=== PATIENT | male | born 1995 | race Two or more races ===

== ENCOUNTER 2023-09-16 17:10 | Emergency (ER) | payer BC, MEDICAID ==
[~2023-09-16] VITALS: Ht 182.9 cm; Wt 181.0 kg
[2023-09-16] MEDS ORDERED: SODIUM CHLORIDE 0.9% 500 ML IVB ONE (18:00)
[2023-09-16 19:11] LABS: Basophils # (auto) 0 10 ^3/uL (0-0.2); Eosinophils # (auto) 0 10 ^3/uL (0-0.8); Monocytes # (auto) 0.7 10 ^3/uL (0-1.3); Nucleated Red Blood Cells % 0.1 %
[2023-09-16 19:12] LABS: Basophils % (auto) 0.2 % (0.0-2.0); Eosinophils % (auto) 0.3 % (0.0-7.0); Hematocrit 50.1 % (41.0-53.0); Hemoglobin 16.3 g/dL (13.5-17.5); Lymphocytes # (auto) 1.2 10 ^3/uL (0.4-5.4); Lymphocytes % (auto) 8.4 % (10.0-50.0); Mean Corpuscular Hemoglobin 26.6 pg (28.0-32.0); Mean Corpuscular Hgb Conc. 32.4 g/dL (32.0-36.0); Mean Corpuscular Volume 81.9 fL (80.0-100.0); Monocytes % (auto) 4.8 % (0.0-12.0); Neutrophils # (auto) 12.4 10 ^3/uL (1.6-8.6); Neutrophils % (auto) 86.3 % (37.0-80.0); Red Blood Cells 6.12 10^6/uL (4.5-5.90); Red Cell Distribution Width 14.1 % (11.8-14.3); White Blood Cell 14.4 10^3/uL (4.4-10.8)
[2023-09-16 19:34] LABS: Alanine Aminotransferase 71 U/L (7-40); Albumin 4.8 g/dL (3.2-4.8); Alkaline Phosphatase 49 U/L (46-116); Anion Gap 11 (5-15); Aspartate Aminotransferase 38 U/L (13-40); BUN/Creatinine Ratio 8.1 (10.0-20.0); Bilirubin, Total 0.3 mg/dL (0.2-1.0); Blood Alcohol < 3.0 mg/dL (<10); Blood Urea Nitrogen 8 mg/dL (9-23); Calcium 9.8 mg/dL (8.5-10.1); Carbon Dioxide 19 mmol/L (20-30); Chloride 108 mmol/L (98-107); Glucose 87 mg/dL (74-106); Potassium 4.4 mmol/L (3.5-5.1); Sodium 138 mmol/L (136-145); Total Protein 7.3 g/dL (5.7-8.2)
[2023-09-16 20:03] LABS: Magnesium 2.6 mg/dL (1.6-2.6)
[2023-09-16] MEDS ORDERED: HYDR-4902 PO (21:25)
[2023-09-16] MEDS ORDERED: ONDANSETRON HCL 4 MG/2 ML VIAL IV ONE (21:30)
[2023-09-16] MEDS ORDERED: MORPHINE SULFATE 4 MG/ML SYR/VIAL IV ONE (21:30)
[2023-09-16 21:32] VITALS: TEMP 98.7
[2023-09-16 22:50] VITALS: BP 135/74
[2023-09-16 23:03] VITALS: PULSE 72; RESP 16; O2SAT 98
== END 2023-09-16 23:06 | disposition home or self-care (01) ==
LOC: ER 17:10 → EDBD 17:10 → ER 23:06
DX: S82.092A Other fracture of left patella, initial encounter for closed fracture (principal); R56.9 Unspecified convulsions; F17.210 Nicotine dependence, cigarettes, uncomplicated; F15.90 Other stimulant use, unspecified, uncomplicated; Z79.899 Other long term (current) drug therapy; X58.XXXA Exposure to other specified factors, initial encounter; Y93.89 Activity, other specified; Y92.89 Other specified places as the place of occurrence of the external cause; Y99.8 Other external cause status
CPT/HCPCS: 29505; 36415; 70450; 73700; 80053; 80320; 83735; 85025; 96361; 96374; 96375; 99285; J2270; J2405; J7040

== ENCOUNTER 2024-12-18 22:52 | Inpatient (IN) | payer MEDICAID ==
[~2024-12-18] VITALS: Ht 177.8 cm; Wt 125.0 kg
[~2024-12-18 22:52] MED LIST: HYDR-4902 PO
--- NOTE | 2024-12-18 23:12 | ED.PDOC ---
General HPI Comments HPI: Poor Historian. 29-year-old male Presents to the ED for evaluation of sudden onset of left flank pain approximately 40 minutes prior to arrival. Associated with nausea. No vomiting or diarrhea. Past Medical History: Hypertension Past Surgical History: Denies any REVIEW OF SYSTEMS: CONSTITUTIONAL: Denies acute: fever, diaphoresis, chills, generalized weakness. HEAD: Denies acute: headache, photophobia Eyes: Denies acute: Double vision, vision loss, eye pain, eye discharge. EARS: Denies acute: tinnitus, hearing loss, ear discharge, ear pain, THROAT: Denies acute: sore throat, swelling, difficulty swallowing , pain with swallowing, change in voice. NECK: Denies acute: neck pain, neck swelling, stiff neck. HEART: Denies acute : chest pain, palpitations, LUNGS: Denies acute: SOB, wheezing, cough, hemoptysis ABDOMEN: Denies acute: abdominal pain, Nausea, Vomiting, diarrhea, melena , hematemesis, hematochezia SKIN: Denies acute: rash, redness, lesions, itchiness. EXTREMITIES: Denies acute: calf pain, numbness, tingling, weakness, denies pain in extremity. Denies acute: Low back pain. Neuro: Denies acute: focal neurological deficit, motor or sensory focal neurological deficit, tremors, seizure like activity, confusion, dizziness, change in mental status, loss of bowel or bladder function, cauda equina like symptoms. : Denies acute: dysuria, hematuria, increase in urinary frequency. PSYCH: Denies acute: hallucination, suicidal ideation, homicidal ideation. PHYSICAL EXAM: General: Moderate to severe acute distress, awake and alert. Head: normocephalic, atraumatic. Neck: supple, trachea is midline, no swelling. Throat: Normal phonation. Eyes:, no erythema, no purulent discharge, no proptosis, no icterus. Heart: regular rate, regular rhythm, no significant murmur appreciated. Lungs: no apparent respiratory distress, Able to speak in full sentences. No wheezing, no rhonchi, no crackles. No stridors Clear to auscultation bilaterally. Abdomen: Left upper quadrant tender to palpation, non distended, soft, no guarding, no rebound, + bowel sounds. Neuro: Awake, Alert, oriented to name, self, situation, follows commands GCS=15. Speech is normal. Skin: no petechia, no purpura, no cyanosis, non-pale, not jaundice. Lower extremities: --no - Pitting edema no deformity, no focal swelling, no calf TTP. Makes eye contact. moves all four extremities. Face: no apparent facial droop. L CVA tenderness to percussion Ambulating in the ED independently. ED COURSE: Chief Complaint: Flank Pain Time Seen by MD: 22:57 Primary Care Provider: NONE Reviewed notes: Nurses Notes, Allergies Allergies: Coded Allergies: NO KNOWN ALLERGIES (Unverified , 11/14/11) Home Meds Active Scripts Hydrocodone-Acetaminophen (Hydrocodone Bitartrate/AC 5-325 mg) 1 Tab Tab, 1 TAB PO Q8HP PRN for 7 Days, #21 TAB Prov:NA MERCER MD 09/16/23 Information Source: Patient Past Medical History PAST MEDICAL HISTORY: Denies Surgical History: Denies all surgeries Family History Family History: Family hx of DM, Family hx of HTN, Family hx of stroke Social History Smoker: Cigarettes Alcohol: Occasionally Drugs: Marijuana Lives In: Home Was a procedure done? Was a procedure done?: No Differential Diagnosis Kidney stone (Female): N/A Kidney stone (Male): AAA, Aortic dissection, Appendicitis train, Bowel obstruction, Cholelithiasis, DJD, Hepatitis, HNP, Cholangitis, Pancreatitis, Pyelonephritis, Renal failure, Strain, Urinary obstruction, Urolithiasis, Renal infarction, Urinary tract infection, Other (Flank Pain;DDX include Nephrolethiasis, obstructive uropathy, kidney cancer, renal infarct, intraabdominal neoplasm, lower lobe pneumonia, retroperitoneal hemorrhage, pancreatitis, aneurysm, dissection, musculoskeletal, rib contusion/trauma, hematoma, PYLONEPHRITIS, muscle strain, spinal disease.) X-Ray, Labs, Meds, VS Vital Signs Date Time Temp Pulse Resp B/P (MAP) Pulse Ox O2 Delivery O2 Flow Rate FiO2 12/18/24 23:58 100 Room Air* 0 21 12/18/24 23:54 104/78 12/18/24 23:48 73 28 104/78 (87) 100 12/18/24 23:10 97.9 75 19 152/54 (86) 99 Lab Test 12/19/24 00:35 12/18/24 23:12 12/18/24 23:04 Range/Units Lactic Acid Level 3.8 *H 4.8 *H 0.4-2.0 mmol/L Urine Color Pending Urine Clarity Pending Urine pH Pending Urine Specific [place] Pending Urine Protein Pending Urine Ketones Pending Urine Blood Pending Urine Nitrite Pending Urine Bilirubin Pending Urine Urobilinogen Pending Urine Leukocyte Esterase Pending Urine RBC Pending Urine Microscopic WBC Pending Urine Squamous Epithelial Cells Pending Urine Bacteria Pending Urine Glucose Pending Urine Opiates Screen Pending Urine Fentanyl Screen Pending Urine Barbiturates Screen Pending Urine Phencyclidine Screen Pending Urine Amphetamines Screen Pending Urine Benzodiazepines Screen Pending Urine Cocaine Screen Pending Urine Cannabinoids Screen Pending White Blood Count 8.5 4.4-10.8 10^3/uL Red Blood Count 5.40 4.5-5.90 10^6/uL Hemoglobin 14.7 13.5-17.5 g/dL Hematocrit 43.7 41.0-53.0 % Mean Corpuscular Volume 81.0 80.0-100.0 fL Mean Corpuscular Hemoglobin 27.1 L 28.0-32.0 pg Mean Corpuscular Hemoglobin Concent 33.5 32.0-36.0 g/dL Red Cell Distribution Width 13.6 11.8-14.3 % Platelet Count 354 140-450 10^3/uL Mean Platelet Volume 7.1 6.9-10.8 fL Neutrophils (%) (Auto) 49.9 37.0-80.0 % Lymphocytes (%) (Auto) 37.8 10.0-50.0 % Monocytes (%) (Auto) 9.5 0.0-12.0 % Eosinophils (%) (Auto) 1.9 0.0-7.0 % Basophils (%) (Auto) 0.9 0.0-2.0 % Neutrophils # (Auto) 4.2 1.6-8.6 10 ^3/uL Lymphocytes # (Auto) 3.2 0.4-5.4 10 ^3/uL Monocytes # (Auto) 0.8 0-1.3 10 ^3/uL Eosinophils # (Auto) 0.2 0-0.8 10 ^3/uL Basophils # (Auto) 0.1 0-0.2 10 ^3/uL Nucleated Red Blood Cells 0.1 % Sodium Level 139 136-145 mmol/L Potassium Level 3.3 L 3.5-5.1 mmol/L Chloride Level 104 98-107 mmol/L Carbon Dioxide Level 19 L 20-31 mmol/L Anion Gap 16 H 5-15 Blood Urea Nitrogen 13 9-23 mg/dL Creatinine 1.19 0.700-1.30 mg/dL Glomerular Filtration Rate Calc 84 >90 mL/min BUN/Creatinine Ratio 10.9 10.0-20.0 Serum Glucose 108 H 74-106 mg/dL Calcium Level 10.8 H 8.7-10.4 mg/dL Total Bilirubin 0.6 0.2-1.0 mg/dL Aspartate Amino Transferase (AST) 22 13-40 U/L Alanine Aminotransferase (ALT) 35 7-40 U/L Alkaline Phosphatase 49 46-116 U/L Total Protein 7.7 5.7-8.2 g/dL Albumin 5.1 H 3.2-4.8 g/dL Lipase 77 H 12-53 U/L Current Medications Medications (Trade) Dose Ordered Sig/Coleen Route Start Time Stop Time Status Last Admin Sodium Chloride 1,000 ml @ 1,000 mls/hr Q1H ONCE IV 12/18/24 23:15 12/19/24 00:14 DC 12/18/24 23:49 Ondansetron HCl (Zofran) 8 mg ONCE ONCE IV 12/18/24 23:15 12/18/24 23:16 DC 12/18/24 23:53 Fentanyl Citrate 100 mcg ONCE ONCE IV 12/18/24 23:15 12/18/24 23:16 DC 12/18/24 23:54 Acetaminophen/ Hydrocodone Bitart (Panora 5/325MG Tab) 1 tab ONCE ONCE PO 12/18/24 23:15 12/18/24 23:16 DC 12/18/24 23:19 Tamsulosin HCl (Flomax) 0.4 mg ONCE ONCE PO 12/18/24 23:15 12/18/24 23:16 DC 12/18/24 23:18 Sodium Chloride 1,000 ml @ 1,000 mls/hr Q1H ONCE IV 12/19/24 00:00 12/19/24 00:59 DC 12/19/24 00:31 Ketorolac Tromethamine (Toradol Injection) 30 mg ONCE ONCE IV 12/19/24 00:15 12/19/24 00:26 DC 12/19/24 00:38 Ondansetron HCl (Zofran) 4 mg ONCE ONCE IV 12/19/24 01:15 12/19/24 01:16 DC 12/19/24 01:17 Potassium Chloride (Klor-Con Tablet) 20 meq ONCE ONCE PO 12/19/24 01:45 12/19/24 01:47 DC 12/19/24 01:53 Sodium Chloride 1,000 ml @ 60 mls/hr [id number] IV 12/19/24 01:45 12/19/24 01:55 Fentanyl Citrate 100 mcg ONCE ONCE IV 12/19/24 01:45 12/19/24 01:47 DC 12/19/24 01:54 [place] [id number] Ph: [phone] DIAGNOSTIC IMAGING Diagnostic Imaging Report : [id number] Signed PATIENT: MARCO A HOWARD ACCT: [id number] UNIT: [id number] : 1995 LOC: ER ROOM / BED: / AGE / SEX: 29 / M ADM STATUS: REG ER SERVICE [id number] ORDERING PHYSICIAN: KARENA PARTIDA DO PROCEDURE(s): ABPL - CT AB PEL WO CON-NO ORAL OR IV REASON: abd pain ORDER NUMBER(s): [id number], ACCESSION NUMBER(s): [id number] CLINICAL HISTORY: abd pain TECHNIQUE: CT of the abdomen and pelvis was performed without intravenous contrast. This exam was performed according to our departmental dose optimization program. Up-to-date CT equipment and radiation dose reduction techniques are utilized as appropriate. COMPARISON: None FINDINGS: Lower Thorax: Unremarkable. Liver and Biliary system: Mild hepatomegaly. Otherwise unremarkable. Spleen: Unremarkable. Adrenal Glands and Kidneys: Normal adrenal glands. There is an obstructing 4 mm calculus in the distal left ureter resulting in mild left hydroureteronephrosis. Tiny nonobstructing right upper pole renal calculus. Pancreas and Retroperitoneum: Unremarkable. Aorta and Major Vessels: Aortoiliac vessels are normal in caliber. Trace calcified atherosclerotic plaque. Bowel, Mesentery and Peritoneal space: Normal caliber small and large bowel. Normal appendix. No free air or fluid collection. Pelvis: Unremarkable. Abdominal wall and Osseous Structures: Mild lower thoracic and lumbar spondylosis. No destructive osseous lesion. IMPRESSION: 1. Obstructing 4 mm calculus in the distal left ureter resulting in mild left hydroureteronephrosis. 2. Tiny nonobstructing right upper pole renal calculus. 3. Mild hepatomegaly. ATED BY: DANNIE KAM MD DICTATED DATE/TIME: 12/19/2441 SIGNED BY: DANNIE KAM MD SIGNED DATE/TIME: 12/19/2441 CC: Time of 1ST Reevaluation: : Reevaluation 1ST: Improved Patient Education/Counseling: Diagnosis, Treatment Family Education/Counseling: No Family Present Comments Patient presented with the above HPI.--flank pain----workup was initiated. patient was found with the above mentioned diagnosis. the following medications were ordered: please refer to order lists of meds and tests obtained by myself Dr. Partida. Patient ED course and VS have been stabilized. Patient has been reassessed in the ED and remained in a stable condition. Pertinent incidental findings were discussed with the patient and/or family. Patient/family voices understanding and is agreeable with plan. Patient has been observed in the ED adequate length of time to insure improvement/stability. Escalation of care considered: Consideration of escalation to observation or admission Patient was ADMITTED to the medicine team for further evaluation and treatment of their presentation. Patient will benefit from urology consult. Patient is still requiring IV pain medications for symptoms control. All the reports of any imaging studies that were ordered by myself were reviewed by myself. Departure 1 Departure Time of Disposition: :00 Impression: Primary Impression: Hydronephrosis with renal and ureteral calculous obstruction Disposition: ADMITTED INPATIENT Admit to: Tele Condition: Guarded Discharged With: Self Critical Care Note Critical Care Time?: Yes (35 min-critical care time only) KARENA PARTIDA DO Dec 18, 2024 23:11
[2024-12-18] MEDS: TAMSULOSIN HYDROCHLORIDE 0.4 MG CAP PO ONE (23:18)
[2024-12-18] MEDS: HYDROcodone-ACET 5/325MG TAB PO ONE (23:19)
[2024-12-18 23:23] LABS: Basophils # (auto) 0.1 10 ^3/uL (0-0.2); Basophils % (auto) 0.9 % (0.0-2.0); Eosinophils # (auto) 0.2 10 ^3/uL (0-0.8); Eosinophils % (auto) 1.9 % (0.0-7.0); Hematocrit 43.7 % (41.0-53.0); Hemoglobin 14.7 g/dL (13.5-17.5); Lymphocytes # (auto) 3.2 10 ^3/uL (0.4-5.4); Lymphocytes % (auto) 37.8 % (10.0-50.0); Mean Corpuscular Hemoglobin 27.1 pg (28.0-32.0); Mean Corpuscular Hgb Conc. 33.5 g/dL (32.0-36.0); Monocytes # (auto) 0.8 10 ^3/uL (0-1.3); Monocytes % (auto) 9.5 % (0.0-12.0); Neutrophils # (auto) 4.2 10 ^3/uL (1.6-8.6); Neutrophils % (auto) 49.9 % (37.0-80.0); Nucleated Red Blood Cells % 0.1 %; Platelet Count (auto) 354 10^3/uL (140-450); Red Cell Distribution Width 13.6 % (11.8-14.3); White Blood Cell 8.5 10^3/uL (4.4-10.8)
[2024-12-18 23:43] LABS: Alanine Aminotransferase 35 U/L (7-40); Alkaline Phosphatase 49 U/L (46-116); Anion Gap 16 (5-15); Aspartate Aminotransferase 22 U/L (13-40); BUN/Creatinine Ratio 10.9 (10.0-20.0); Bilirubin, Total 0.6 mg/dL (0.2-1.0); Blood Urea Nitrogen 13 mg/dL (9-23); Chloride 104 mmol/L (98-107); Sodium 139 mmol/L (136-145); Total Protein 7.7 g/dL (5.7-8.2)
[2024-12-18 23:44] LABS: Albumin 5.1 g/dL (3.2-4.8); Calcium 10.8 mg/dL (8.7-10.4); Carbon Dioxide 19 mmol/L (20-31); Glucose 108 mg/dL (74-106); Lipase 77 U/L (12-53); Potassium 3.3 mmol/L (3.5-5.1)
[2024-12-18] MEDS: SODIUM CHLORIDE 0.9% 1,000 ML IV ONE (23:49)
[2024-12-18 23:52] LABS: Lactic Acid w/Reflex 4.8 mmol/L (0.4-2.0)
[2024-12-18] MEDS: ONDANSETRON HCL 4 MG/2 ML VIAL IV ONE (23:53)
[2024-12-18] MEDS: fentaNYL CITRATE 100 MCG/2 ML VL IV ONE (23:54)
[2024-12-18 23:58] VITALS: O2SAT 100
[2024-12-19] MEDS: SODIUM CHLORIDE 0.9% 1,000 ML IV ONE (00:31)
[2024-12-19] MEDS: KETOROLAC TROMETH 30 MG/ML 1ML VIAL IV ONE (00:38)
--- NOTE | 2024-12-19 00:45 | DVH ---
CLINICAL HISTORY: abd pain TECHNIQUE: CT of the abdomen and pelvis was performed without intravenous contrast. This exam was per formed according to our departmental dose optimization program. Up-to-date CT equipment and radiation dose reduction techniques are utilized as appropriate. COMPARISON: None FINDINGS: Lower Thorax: Unremarkable. Liver and Biliary system: Mild hepatomegaly. Otherwise unremarkable. Spleen: Unremarkable. Adrenal Glands and Kidneys: Normal adrenal glands. There is an obstructing 4 mm calculus in the dista l left ureter resulting in mild left hydroureteronephrosis. Tiny nonobstructing right upper pole lux l calculus. Pancreas and Retroperitoneum: Unremarkable. Aorta and Major Vessels: Aortoiliac vessels are normal in caliber. Trace calcified atherosclerotic pl aque. Bowel, Mesentery and Peritoneal space: Normal caliber small and large bowel. Normal appendix. No free air or fluid collection. Pelvis: Unremarkable. Abdominal wall and Osseous Structures: Mild lower thoracic and lumbar spondylosis. No destructive oss eous lesion. IMPRESSION: 1. Obstructing 4 mm calculus in the distal left ureter resulting in mild left hydroureteronephrosis. 2. Tiny nonobstructing right upper pole renal calculus. 3. Mild hepatomegaly.
[2024-12-19] MEDS: ONDANSETRON HCL 4 MG/2 ML VIAL IV ONE (01:17)
[2024-12-19 01:29] LABS: Urine Bacteria None Seen /hpf (None Seen)
[2024-12-19] MEDS ORDERED: ACETAMINOPHEN 325 MG TAB PO PRN (01:45)
[2024-12-19] MEDS ORDERED: ONDANSETRON HCL 4 MG/2 ML VIAL IV PRN (01:45)
[2024-12-19] MEDS ORDERED: MORPHINE SULFATE INJ 2 MG/ml SYRG IV PRN ×2 (01:45→02:00)
[2024-12-19] MEDS: POTASSIUM CHL 20 Meq TABLET PO ONE (01:53)
--- NOTE | 2024-12-19 01:53 | DVHHP2 ---
History of Present Illness Reason for Visit: Hydronephrosis History of Present Illness Patient is a 29-year-old male with past medical history of hypertension who presented to [facility] ED with complaint of left flank pain associated with nausea. Patient was seen and evaluated in the ED, laboratory data show WBC 8.5, platelets 354, sodium 139, potassium 3.3, BUN 13, creatinine 1.19, GFR 84, glucose 108, lactic acid 3.8, albumin 5.1, lipase 77, calcium 10.8, blood pressure 104/78, heart rate 72, temperature 97.9 F, O2 saturation 99% on room air. Abdomen/pelvis CT revealing obstructing 4 mm calculus in the distal left ureter resulting in mild left hydroureteronephrosis, tiny nonob structing right upper pole renal calculus, mild hepatomegaly. Urology will follow the patient, please see medication orders section in the computer. On my assessment, patient denies chest pain, no headache, no dizziness, abdominal pain, no diarrhea, no nausea, no vomiting, no fever, no chills. Patient was admitted for further evaluation and medical management. Past Medical History Hypertension Past Surgical History Denies all surgeries Family History Reviewed, noncontributory to the management of this case. Past Social History The patient lives at home, smokes cigarettes, drinks alcohol occasionally, uses marijuana. Review of Systems Constitutional: Yes: Chills; No: Fever, Sweats, Weakness, Malaise, Other Eyes: No: Pain, Vision change, Conjunctivae inflammation, Eyelid inflammation, Other, Redness ENT: No: Ear pain, Ear discharge, Nose pain, Nose discharge, Nose congestion, Mouth pain, Mouth swelling, Throat pain, Throat swelling, Other Respiratory: No: Cough, Dry, Shortness of breath, SOB with excertion, Wheezing, Hemoptysis, Pleuritic Pain, Sputum, Wheezing, Other Cardiovascular: No: Chest Pain, Palpitations, Orthopnea, Paroxysmal Noc. Dyspnea, Edema, Lt Headedness, Other Gastrointestinal: Nausea, Abdominal Pain; No: Vomiting, Diarrhea, Constipation, Melena, Hematochezia, Other Genitourinary: No Dysuria, No Frequency, No Incontinence, No Hematuria, No Retention; Other (Left flank pain) Musculoskeletal: No: other, neck pain, shoulder pain, arm pain, back pain, hand pain, leg pain, foot pain Skin: No: Rash, Lesions, Jaundice, Bruising, Other Neurological: No: Weakness, Numbness, Incoordination, Change in speech, Confusion, Seizures, Other Allergies: Coded Allergies: NO KNOWN ALLERGIES (Unverified , 11/14/11) Medications Current Medications Medications Dose Ordered Sig/Coleen Route Start Time Stop Time Status Last Admin Dose Admin Sodium Chloride 1,000 ml @ 60 mls/hr [id number] IV 12/19/24 01:45 Acetaminophen/ Hydrocodone Bitart 1 tab Q4HP PRN PO 12/19/24 01:45 Ondansetron HCl 4 mg Q4HP PRN IV 12/19/24 01:45 Docusate Sodium 100 mg BIDPRN PRN PO 12/19/24 01:45 Acetaminophen 650 mg Q6HP PRN PO 12/19/24 01:45 Morphine Sulfate 2 mg Q4HPRN PRN IV 12/19/24 01:45 Metoclopramide HCl 10 mg Q6HPRN PRN IV 12/19/24 02:00 Exam Vital Signs Vital Signs Date Time Temp Pulse Resp B/P (MAP) Pulse Ox O2 Delivery O2 Flow Rate FiO2 12/18/24 23:58 100 Room Air* 0 21 12/18/24 23:54 104/78 12/18/24 23:48 73 28 12/18/24 23:10 97.9 General Appearance: Alert, Oriented X3, Cooperative, No acute distress HEENT: Atraumatic, PERRLA, EOMI, Mucous membr. moist/pink Respiratory: Clear to auscultation, Normal air movement Cardiovascular: Regular rate, Normal S1, Normal S2, No murmurs Abdominal: Normal bowel sounds, Soft, No tenderness, No hepatospenomegaly, No masses Extremities: No clubbing, No cyanosis, No edema, Normal pulses, No tenderness/swelling Skin: No rashes, No breakdown, No significant lesion Neuro: Normal speech, Normal tone, Sensation intact, Cranial nerves 3-12 NL, Reflexes 2+, Other (Generalized weakness) Psych/Mental Status: Mental status NL, Mood NL Labs/Xrays Labs Test 12/19/24 00:35 12/18/24 23:12 12/18/24 23:04 Range/Units Lactic Acid Level 3.8 *H 0.4-2.0 mmol/L White Blood Count 8.5 4.4-10.8 10^3/uL Red Blood Count 5.40 4.5-5.90 10^6/uL Hemoglobin 14.7 13.5-17.5 g/dL Hematocrit 43.7 41.0-53.0 % Mean Corpuscular Volume 81.0 80.0-100.0 fL Mean Corpuscular Hemoglobin 27.1 L 28.0-32.0 pg Mean Corpuscular Hemoglobin Concent 33.5 32.0-36.0 g/dL Red Cell Distribution Width 13.6 11.8-14.3 % Platelet Count 354 140-450 10^3/uL Mean Platelet Volume 7.1 6.9-10.8 fL Neutrophils (%) (Auto) 49.9 37.0-80.0 % Lymphocytes (%) (Auto) 37.8 10.0-50.0 % Monocytes (%) (Auto) 9.5 0.0-12.0 % Eosinophils (%) (Auto) 1.9 0.0-7.0 % Basophils (%) (Auto) 0.9 0.0-2.0 % Neutrophils # (Auto) 4.2 1.6-8.6 10 ^3/uL Lymphocytes # (Auto) 3.2 0.4-5.4 10 ^3/uL Monocytes # (Auto) 0.8 0-1.3 10 ^3/uL Eosinophils # (Auto) 0.2 0-0.8 10 ^3/uL Basophils # (Auto) 0.1 0-0.2 10 ^3/uL Nucleated Red Blood Cells 0.1 % Sodium Level 139 136-145 mmol/L Potassium Level 3.3 L 3.5-5.1 mmol/L Chloride Level 104 98-107 mmol/L Carbon Dioxide Level 19 L 20-31 mmol/L Anion Gap 16 H 5-15 Blood Urea Nitrogen 13 9-23 mg/dL Creatinine 1.19 0.700-1.30 mg/dL Glomerular Filtration Rate Calc 84 >90 mL/min BUN/Creatinine Ratio 10.9 10.0-20.0 Serum Glucose 108 H 74-106 mg/dL Calcium Level 10.8 H 8.7-10.4 mg/dL Total Bilirubin 0.6 0.2-1.0 mg/dL Aspartate Amino Transferase (AST) 22 13-40 U/L Alanine Aminotransferase (ALT) 35 7-40 U/L Alkaline Phosphatase 49 46-116 U/L Total Protein 7.7 5.7-8.2 g/dL Albumin 5.1 H 3.2-4.8 g/dL Lipase 77 H 12-53 U/L PATIENT: MARCO A HOWARD ACCT: [id number] UNIT: [id number] : 1995 LOC: ER ROOM / BED: / AGE / SEX: 29 / M ADM STATUS: REG ER SERVICE [id number] ORDERING PHYSICIAN: KARENA PARTIDA DO PROCEDURE(s): ABPL - CT AB PEL WO CON-NO ORAL OR IV REASON: abd pain ORDER NUMBER(s): [id number], ACCESSION NUMBER(s): [id number] CLINICAL HISTORY: abd pain TECHNIQUE: CT of the abdomen and pelvis was performed without intravenous contrast. This exam was performed according to our departmental dose optimization program. Up-to-date CT equipment and radiation dose reduction techniques are utilized as appropriate. COMPARISON: None FINDINGS: Lower Thorax: Unremarkable. Liver and Biliary system: Mild hepatomegaly. Otherwise unremarkable. Spleen: Unremarkable. Adrenal Glands and Kidneys: Normal adrenal glands. There is an obstructing 4 mm calculus in the distal left ureter resulting in mild left hydroureteronephrosis. Tiny nonobstructing right upper pole renal calculus. Pancreas and Retroperitoneum: Unremarkable. Aorta and Major Vessels: Aortoiliac vessels are normal in caliber. Trace ca lcified atherosclerotic plaque. Bowel, Mesentery and Peritoneal space: Normal caliber small and large bowel. Normal appendix. No free air or fluid collection. Pelvis: Unremarkable. Abdominal wall and Osseous Structures: Mild lower thoracic and lumbar spon dylosis. No destructive osseous lesion. IMPRESSION: 1. Obstructing 4 mm calculus in the distal left ureter resulting in mild left hydroureteronephrosis. 2. Tiny nonobstructing right upper pole renal calculus. 3. Mild hepatomegaly. Assessment/Plan Assessment/Plan Left flank pain Hypokalemia Generalized weakness Hydronephrosis with renal and ureteral calculous obstruction Plan 1. Admit to med surge unit 2. Breathing treatment 3. Pain control management 4. Management of fluids and electrolytes 5. Consultation for Urology/hospitalist 6. Diagnostic tests abdomen/pelvis CT 7. DVT prophylaxis-on SCDs 8. Repeat labs CBC, CMP in a.m. 9. Continue with current medical management 10. Treatment plan discussed with patient and RN. Patient verbalized understanding. Plan discussed with: Patient, Other (RN) My Orders Orders - MADONNA BLUE DNP Procedure Category Date Status Time Complete Blood Count LAB 12/19/24 Logged 04:00 Comprehensive LAB 12/19/24 Logged Metabolic Panel 04:00 * Urology Consult CONS 12/19/24 Transmitted 01:35 Allergies BARB 12/19/24 In Process 01:35 Code Status CODE 12/19/24 Transmitted 01:35 Sodium Chloride 0.9% PHA 12/19/24 In Process 01:45 Oxygen Per Hour RT 12/19/24 Transmitted 01:35 Hydrocodone-Acet PHA 12/19/24 In Process 5/325mg Tab ([place] 01:45 Ondansetron Hcl PHA 12/19/24 In Process (Zofran) 01:45 Docusate Sodium PHA 12/19/24 In Process Capsule (Colace 01:45 Complete Blood Count LAB 12/20/24 Verified 04:00 Comprehensive LAB 12/20/24 Verified Metabolic Panel 04:00 Cardiac DIET 12/19/24 Transmitted Diet-2gna,Lofat,Lochol Breakfast Condition: Serious BARB 12/19/24 In Process 01:35 Acetaminophen Tablet PHA 12/19/24 In Process (Tylenol Tablet) 01:45 Bedrest With Bathroom BARB 12/19/24 In Process Privileg 01:35 Morphine Sulfate PHA 12/19/24 In Process Injection 01:45 Sequential BARB 12/19/24 In Process Compression Device Metoclopramide PHA 12/19/24 In Process Injection (Reglan 02:00 Admit ADMIT 12/19/24 Transmitted 01:52 Nitroglycerin PHA 12/19/24 Transmitted Sublingual (Ntrostat 02:00 Morphine Sulfate PHA 12/19/24 Transmitted Injection 02:00 Stat Ekg For Chest BARB 12/19/24 Transmitted Pain 01:52 Notify Of Changes BARB 12/19/24 Transmitted From Base 01:52 Vp Director Of Creative Strategy For BARB 12/19/24 Transmitted 24 Hours 01:52 Emergency Dysrhythmia BARB 12/19/24 Transmitted Protocol 01:52 Rhythm Strips Once BARB 12/19/24 Transmitted Every Shift 01:52 Oxygen By Nasal RT 12/19/24 Transmitted Cannula 01:52 Problem List: (1) Left flank pain (2) Generalized weakness (3) Hypokalemia (4) Hydronephrosis with renal and ureteral calculous obstruction Date of Service: Dec 19, 2024 Billing Provider: MADONNA BLUE DNP Common Visit Codes: [id number] INP/OBS CARE (HIGH) MADONNA BLUE DNP Dec 19, 2024 01:53
[2024-12-19] MEDS: METOCLOPRAMIDE HCL 5MG/ml INJ 2ml VIAL IV ONE (01:54)
[2024-12-19] MEDS: fentaNYL CITRATE 100 MCG/2 ML VL IV ONE (01:54)
[2024-12-19] MEDS: SODIUM CHLORIDE 0.9% 1,000 ML IV SCH (01:55)
[2024-12-19] MEDS ORDERED: METOCLOPRAMIDE HCL 5MG/ml INJ 2ml VIAL IV PRN (02:00)
[2024-12-19] MEDS ORDERED: NITROGLYCERIN 0.4 MG SL TAB SL PRN (02:00)
[2024-12-19 02:03] LABS: Cannabinoid Screen, Urine Pos (NEGATIVE)
[2024-12-19 02:05] LABS: Urine Blood 2+ /uL (Negative); Urine Clarity Clear (Clear); Urine Color Yellow (Yellow); Urine Mucus FEW (None Seen); Urine Protein, UAD 1+ (Negative); Urine Specific Gravity 1.042 (1.001-1.035); Urine Squamous Epithelial Cell FEW /hpf (<5); Urine Urobilinogen 2 mg/dL (Negative); Urine WBC 4 /HPF (0-3); Urine pH 6.5 (5.0-9.0)
[2024-12-19 02:06] LABS: Amphetamine Screen, Urine Neg (NEGATIVE); Barbiturate Scree,Urine Neg (NEGATIVE); Benzodiazephine Screen, Urine Neg (NEGATIVE); Cocaine Screen, Urine Neg (NEGATIVE); Opiate Scree,Urine Neg (NEGATIVE); Phencyclidine Screen, Urine Neg (NEGATIVE)
[2024-12-19] MEDS: cefTRIAXone 1GM/50ML D5W 50 ML IV ONE (02:47)
[2024-12-19] MEDS: HYDROcodone-ACET 5/325MG TAB PO PRN (04:46)
[2024-12-19] MEDS: DOCUSATE SOD 100 MG CAP PO PRN (05:56)
[2024-12-19 07:17] LABS: Basophils # (auto) 0 10 ^3/uL (0-0.2); Basophils % (auto) 0.2 % (0.0-2.0); Eosinophils # (auto) 0 10 ^3/uL (0-0.8); Hematocrit 42.7 % (41.0-53.0); Hemoglobin 14.1 g/dL (13.5-17.5); Lymphocytes # (auto) 0.6 10 ^3/uL (0.4-5.4); Lymphocytes % (auto) 7.3 % (10.0-50.0); Mean Corpuscular Hemoglobin 26.6 pg (28.0-32.0); Mean Corpuscular Volume 80.5 fL (80.0-100.0); Monocytes # (auto) 0.4 10 ^3/uL (0-1.3); Monocytes % (auto) 4.7 % (0.0-12.0); Neutrophils # (auto) 7.3 10 ^3/uL (1.6-8.6); Neutrophils % (auto) 87.8 % (37.0-80.0); Nucleated Red Blood Cells % 0.1 %; Platelet Count (auto) 299 10^3/uL (140-450); Red Cell Distribution Width 13.7 % (11.8-14.3); White Blood Cell 8.3 10^3/uL (4.4-10.8)
[2024-12-19 07:40] LABS: Anion Gap 13 (5-15); Aspartate Aminotransferase 35 U/L (13-40); BUN/Creatinine Ratio 8.3 (10.0-20.0); Blood Urea Nitrogen 12 mg/dL (9-23); Calcium 9.7 mg/dL (8.7-10.4); Potassium 4.4 mmol/L (3.5-5.1); Sodium 139 mmol/L (136-145)
[2024-12-19 07:41] LABS: Albumin 4.7 g/dL (3.2-4.8); Bilirubin, Total 0.7 mg/dL (0.2-1.0)
[2024-12-19 07:43] LABS: Alanine Aminotransferase 53 U/L (7-40); Alkaline Phosphatase 43 U/L (46-116); Carbon Dioxide 17 mmol/L (20-31); Chloride 109 mmol/L (98-107); Glucose 126 mg/dL (74-106)
[2024-12-19 07:45] VITALS: TEMP 98.8
[2024-12-19 08:26] VITALS: PULSE 47; RESP 23; O2SAT 99
--- NOTE | 2024-12-19 10:17 | DVHPN2 ---
Subjective Decreasing left flank pain Reviewed: Care Plan, H&P, Labs, Medications, Previous Orders, Radiology, Other (Consultations) Changes from previous H/P or p: Changes Objective Vitals Vital Signs Date Time Temp Pulse Resp B/P (MAP) Pulse Ox O2 Delivery O2 Flow Rate FiO2 12/19/24 08:26 47 23 99 Nasal Cannula* 2 28 12/19/24 08:00 124/88 (100) 12/19/24 07:45 98.8 98.8 Intake/Output Intake and Output 12/19/24 07:00 Intake Total 2350 ml Output Total 200 ml Balance 2150 ml Intake IV Total 2350 ml Output Emesis 200 ml General Appearance: Alert, Oriented X3, Cooperative, No acute distress HEENT: Atraumatic Lungs: Clear to auscultation, Normal air movement Cardiovascular: Regular rate, Normal S1, Normal S2 Abdomen: Normal bowel sounds, Soft, Other (Mild left CVA tenderness) Neuro: Normal speech, Cranial nerves 3-12 NL Psych/Mental Status: Mental status NL, Mood NL Medications Current Medications Medications Dose Ordered Sig/Coleen Route Start Time Stop Time Status Last Admin Dose Admin Sodium Chloride 1,000 ml @ 60 mls/hr [id number] IV 12/19/24 01:45 12/19/24 01:55 60 MLS/HR Acetaminophen/ Hydrocodone Bitart 1 tab Q4HP PRN PO 12/19/24 01:45 12/19/24 04:46 1 TAB Ondansetron HCl 4 mg Q4HP PRN IV 12/19/24 01:45 Docusate Sodium 100 mg BIDPRN PRN PO 12/19/24 01:45 12/19/24 05:56 100 MG Acetaminophen 650 mg Q6HP PRN PO 12/19/24 01:45 Morphine Sulfate 2 mg Q4HPRN PRN IV 12/19/24 01:45 Metoclopramide HCl 10 mg Q6HPRN PRN IV 12/19/24 02:00 Nitroglycerin 0.4 mg Q5MINP PRN SL 12/19/24 02:00 Morphine Sulfate 2 mg Q30M PRN IV 12/19/24 02:00 Laboratory Results Laboratory Tests 12/19/24 06:34 Chemistry Test 12/18/24 23:04 12/19/24 06:34 Albumin 5.1 g/dL (3.2-4.8) H 4.7 g/dL (3.2-4.8) Calcium Level 10.8 mg/dL (8.7-10.4) H 9.7 mg/dL (8.7-10.4) Total Protein 7.7 g/dL (5.7-8.2) 7.0 g/dL (5.7-8.2) Lipid panel Test 12/18/24 23:04 Lipase 77 U/L (12-53) H LFT Test 12/18/24 23:04 12/19/24 06:34 Alanine Aminotransferase (ALT) 35 U/L (7-40) 53 U/L (7-40) H Alkaline Phosphatase 49 U/L (46-116) 43 U/L (46-116) L Aspartate Amino Transferase (AST) 22 U/L (13-40) 35 U/L (13-40) Total Bilirubin 0.6 mg/dL (0.2-1.0) 0.7 mg/dL (0.2-1.0) Urinalysis Test 12/18/24 23:12 Urine Color Yellow (Yellow) Urine Clarity Clear (Clear) Urine pH 6.5 (5.0-9.0) Urine Specific [place] 1.042 (1.001-1.035) Urine Protein 1+ (Negative) H Urine Ketones 1+ (Negative) H Urine Blood 2+ /uL (Negative) H Urine Nitrite Negative (Negative) Urine Bilirubin Negative (Negative) Urine Urobilinogen 2 mg/dL (Negative) H Urine Leukocyte Esterase Negative /uL (Negative) Urine RBC 4 /hpf (0 - 3) Urine Microscopic WBC 4 /HPF (0-3) H Urine Squamous Epithelial Cells Few /hpf (<5) Urine Calcium Oxalate Crystals Few (None Seen) Urine Bacteria None seen /hpf (None Seen) Urine Mucus Few (None Seen) Urine Glucose Normal mg/dL (Normal) Labs and/or images reviewed: Labs reviewed by me, Image(s) reviewed by me Assessment/Plan Assessment/Plan A 29-year-old male patient with multiple comorbidities; who presented to emergency department with left flank pain. #Left flank pain due to obstructing 4 mm calculus in the distal left ureter resulting in mild left hydroureteronephrosis; continue IV antibiotics; continue pain management as indicated; evaluated by Urology; left AMA #Asymptomatic bradycardia; evaluated by Cardiology; left AMA #Tiny nonobstructing right upper pole renal calculus; evaluated by Urology; left AMA #Mild hepatomegaly; needs to follow up as outpatient; left AMA #Marijuana use cessation; counseled on marijuana use cessation for 17 minutes; left AMA #Essential hypertension; continue home antihypertensive medications; left AMA Goals of care discussed for 20 minutes; full code Late Entry. This medical document was created using an electronic medical record system with computerized dictation system. Although this document has been carefully reviewed, there might still be some phonetic and typographical errors. These areas are purely typographical due to imperfections of the software programs, and do not reflect any compromise in the patient's medical care. Plan discussed with: Patient, Other (Nurse) Date of Service: Dec 19, 2024 Billing Provider: LORENZO FALLON MD Common Visit Codes: 29264-[id number] INP/OBS CARE(HIGH) Secondary Visit Codes: 73508-SGPIG CHNG SMOKING >10MIN (Counseled on marijuana use cessation for 17 minutes), 23029-[id number] CARE PLAN 30 MINUTES (20 minutes) LORENZO FALLON MD Dec 19, 2024 10:17
--- NOTE | 2024-12-19 14:38 | DVHINCON2 ---
Date of service: Dec 19, 2024 Referring Physician hospitalist Reason for Consultation ureteral stone History of Present Illness History Source: Patient, Family, MD Notes Exam Limitations: No limitations HPI 29 yo male with left flank pain and found to have distal stone approx 4 mm with mild hydronephrosis. Seen in ER holding area. Currently pain free. Home Meds Active Scripts Hydrocodone-Acetaminophen (Hydrocodone Bitartrate/AC 5-325 mg) 1 Tab Tab, 1 TAB PO Q8HP PRN for 7 Days, #21 TAB Prov:NA MERCER MD 09/16/23 Past Medical History Cardiac: HTN Smoker: No Hx (Negative) Alocohol: None Drugs: None Domestic Violence: Neg Review of Systems Constitutional: No symptom reported Ears, Nose, & Throat: No symptom reported Eyes: No symptom reported Pulmonary/Respiratory: No symptom reported Cardiovascular: No symptom reported Gastrointestinal: No symptom reported Genitourinary: No symptom reported Musculoskeletal: No symptom reported Skin: No symptom reported Psychiatric: No symptom reported Endocrine: No symptom reported Hemotologic/Lymphatic: No symptom reported H&P Exam Vital Signs Vital Signs Date Time Temp Pulse Resp B/P (MAP) Pulse Ox O2 Delivery O2 Flow Rate FiO2 12/19/24 14:01 44 16 116/54 (74) 98 12/19/24 08:26 Nasal Cannula* 2 28 12/19/24 07:45 98.8 98.8 General Appeara: Well developed, Well nourished, Normal Appearance, Obese Pulmonary/Respiratory: Normal inspection, Normal breath sounds, Chest non- tender, Lungs clear Cardiovascular/Chest: Bradycardia Back Exam: Normal inspection Neuro/Mental St: Alert, Oriented Appearance: Appropriate appearance, Appropriate insight Eye contact/ Speech: Cooperative, Good eye contact, Normal speech Coordination/Gait: Normal finger->nose, Normal gait, Negative Romberg's sign Skin Exam: Normal inspection, Normal color, Warm/dry Labs/Xrays [address] [address] Ph: [phone] DIAGNOSTIC IMAGING Diagnostic Imaging Report : [id number] Signed PATIENT: MARCO A HOWARD ACCT: [id number] UNIT: [id number] : 1995 LOC: ER ROOM / BED: / AGE / SEX: 29 / M ADM STATUS: REG ER SERVICE DT: [id number] ORDERING PHYSICIAN: KARENA PARTIDA DO PROCEDURE(s): ABPL - CT AB PEL WO CON-NO ORAL OR IV REASON: abd pain ORDER NUMBER(s): [id number], ACCESSION NUMBER(s): [id number] CLINICAL HISTORY: abd pain TECHNIQUE: CT of the abdomen and pelvis was performed without intravenous contrast. This exam was performed according to our departmental dose optimization program. Up-to-date CT equipment and radiation dose reduction techniques are utilized as appropriate. COMPARISON: None FINDINGS: Lower Thorax: Unremarkable. Liver and Biliary system: Mild hepatomegaly. Otherwise unremarkable. Spleen: Unremarkable. Adrenal Glands and Kidneys: Normal adrenal glands. There is an obstructing 4 mm calculus in the distal left ureter resulting in mild left hydroureteronephrosis. Tiny nonobstructing right upper pole renal calculus. Pancreas and Retroperitoneum: Unremarkable. Aorta and Major Vessels: Aortoiliac vessels are normal in caliber. Trace calcified atherosclerotic plaque. Bowel, Mesentery and Peritoneal space: Normal caliber small and large bowel. Normal appendix. No free air or fluid collection. Pelvis: Unremarkable. Abdominal wall and Osseous Structures: Mild lower thoracic and lumbar spondylosis. No destructive osseous lesion. IMPRESSION: 1. Obstructing 4 mm calculus in the distal left ureter resulting in mild left hydroureteronephrosis. 2. Tiny nonobstructing right upper pole renal calculus. 3. Mild hepatomegaly. ATED BY: DANNIE KAM MD DICTATED DATE/TIME: 12/19/2441 SIGNED BY: DANNIE KAM MD SIGNED DATE/TIME: 12/19/2441 CC: Labs Test 12/19/24 06:34 12/19/24 00:35 12/18/24 23:12 12/18/24 23:04 Range/Units White Blood Count 8.3 4.4-10.8 10^3/uL Red Blood Count 5.30 4.5-5.90 10^6/uL Hemoglobin 14.1 13.5-17.5 g/dL Hematocrit 42.7 41.0-53.0 % Mean Corpuscular Volume 80.5 80.0-100.0 fL Mean Corpuscular Hemoglobin 26.6 L 28.0-32.0 pg Mean Corpuscular Hemoglobin Concent 33.0 32.0-36.0 g/dL Red Cell Distribution Width 13.7 11.8-14.3 % Platelet Count 299 140-450 10^3/uL Mean Platelet Volume 7.2 6.9-10.8 fL Neutrophils (%) (Auto) 87.8 H 37.0-80.0 % Lymphocytes (%) (Auto) 7.3 L 10.0-50.0 % Monocytes (%) (Auto) 4.7 0.0-12.0 % Eosinophils (%) (Auto) 0.0 0.0-7.0 % Basophils (%) (Auto) 0.2 0.0-2.0 % Neutrophils # (Auto) 7.3 1.6-8.6 10 ^3/uL Lymphocytes # (Auto) 0.6 0.4-5.4 10 ^3/uL Monocytes # (Auto) 0.4 0-1.3 10 ^3/uL Eosinophils # (Auto) 0 0-0.8 10 ^3/uL Basophils # (Auto) 0 0-0.2 10 ^3/uL Nucleated Red Blood Cells 0.1 % Sodium Level 139 136-145 mmol/L Potassium Level 4.4 3.5-5.1 mmol/L Chloride Level 109 H 98-107 mmol/L Carbon Dioxide Level 17 L 20-31 mmol/L Anion Gap 13 5-15 Blood Urea Nitrogen 12 9-23 mg/dL Creatinine 1.45 H 0.700-1.30 mg/dL Glomerular Filtration Rate Calc 66 >90 mL/min BUN/Creatinine Ratio 8.3 L 10.0-20.0 Serum Glucose 126 H 74-106 mg/dL Calcium Level 9.7 8.7-10.4 mg/dL Total Bilirubin 0.7 0.2-1.0 mg/dL Aspartate Amino Transferase (AST) 35 13-40 U/L Alanine Aminotransferase (ALT) 53 H 7-40 U/L Alkaline Phosphatase 43 L 46-116 U/L Lactate Dehydrogenase 279 H 120-246 U/L Total Protein 7.0 5.7-8.2 g/dL Albumin 4.7 3.2-4.8 g/dL Lactic Acid Level 3.8 *H 0.4-2.0 mmol/L Urine Color Yellow Yellow Urine Clarity Clear Clear Urine pH 6.5 5.0-9.0 Urine Specific [place] 1.042 H 1.001-1.035 Urine Protein 1+ H Negative Urine Ketones 1+ H Negative Urine Blood 2+ H Negative /uL Urine Nitrite Negative Negative Urine Bilirubin Negative Negative Urine Urobilinogen 2 H Negative mg/dL Urine Leukocyte Esterase Negative Negative /uL Urine RBC 4 0 - 3 /hpf Urine Microscopic WBC 4 H 0-3 /HPF Urine Squamous Epithelial Cells Few <5 /hpf Urine Calcium Oxalate Crystals Few None Seen Urine Bacteria None seen None Seen /hpf Urine Mucus Few None Seen Urine Glucose Normal Normal mg/dL Urine Opiates Screen Neg NEGATIVE Urine Fentanyl Screen Neg NEGATIVE Urine Barbiturates Screen Neg NEGATIVE Urine Phencyclidine Screen Neg NEGATIVE Urine Amphetamines Screen Neg NEGATIVE Urine Benzodiazepines Screen Neg NEGATIVE Urine Cocaine Screen Neg NEGATIVE Urine Cannabinoids Screen Pos NEGATIVE Lipase 77 H 12-53 U/L Assessment/Plan Problem List: (1) Hydronephrosis with renal and ureteral calculous obstruction Plan expulsive measures supportive care strain urine cleared from urology standpoint Plan discussed with: Patient, Other CHRISTINA MALDONADO NP Dec 19, 2024 14:38
--- NOTE | 2024-12-19 15:53 | DVHINCON2 ---
Date Seen: Dec 19, 2024 Referring Physician MD [place] Reason for Consultation Bradycardia History of Present Illness This is a pleasant 29-year-old man who presented to the emergency room with a chief complaint of left flank pain. During admission, the patient was noted to be bradycardic with a heart rate as low as 39 bpm. He underwent a 12 lead electrocardiogram revealing a sinus bradycardia rhythm with a heart rate at 47 bpm. case monitor reviewed without evidence of atrioventricular blocks or sinus pauses. The patient denies any dizziness, blurry vision, active GRACIA, chest discomfort, SOB, or syncopal events. Past medical history includes hypertension on amlodipine therapy, a one time event of seizure, migraine headaches, tobacco use, and obesity. Past Medical History Past medical history reviewed. No other significant than mentioned above. Past Surgical History Denies any past surgical history. Family History Family history reviewed. Not significant for CV disease. Social History Admits to tobacco use. Denies the use of alcohol or illicit drugs. Allergies: Coded Allergies: NO KNOWN ALLERGIES (Unverified , 11/14/11) Home Meds Active Scripts Hydrocodone-Acetaminophen (Hydrocodone Bitartrate/AC 5-325 mg) 1 Tab Tab, 1 TAB PO Q8HP PRN for 7 Days, #21 TAB Prov:NA MERCER MD 09/16/23 Home Meds Home medications reviewed. Current Medications Current Medications Medications (Trade) Dose Ordered Sig/Coleen Route PRN Reason Start Time Stop Time Status Last Admin Sodium Chloride 1,000 ml @ 60 mls/hr [id number] IV 12/19/24 01:45 12/19/24 01:55 Acetaminophen/ Hydrocodone Bitart ([place] 5/325MG Tab) 1 tab Q4HP PRN PO MODERATE PAIN (4-6 PAIN SCALE) 12/19/24 01:45 12/19/24 04:46 Ondansetron HCl (Zofran) 4 mg Q4HP PRN IV NAUSEA / VOMITING 12/19/24 01:45 Docusate Sodium (Colace Capsule) 100 mg BIDPRN PRN PO FOR CONSTIPATION 12/19/24 01:45 12/19/24 05:56 Acetaminophen (Tylenol Tablet) 650 mg Q6HP PRN PO PAIN SCALE 1-3 OR TEMP>100.4 12/19/24 01:45 Morphine Sulfate 2 mg Q4HPRN PRN IV SEVERE PAIN (7-10 PAIN SCALE) 12/19/24 01:45 Metoclopramide HCl (Reglan Injection) 10 mg Q6HPRN PRN IV NAUSEA / VOMITING 12/19/24 02:00 Nitroglycerin (Ntrostat Sublingual) 0.4 mg Q5MINP PRN SL FOR CHEST PAIN 12/19/24 02:00 Morphine Sulfate 2 mg Q30M PRN IV FOR CHEST PAIN 12/19/24 02:00 Review of Systems Constitutional: No symptom reported Ears, Nose, & Throat: No symptom reported Eyes: No symptom reported Neurological: No symptoms reported Pulmonary/Respiratory: No symptom reported Cardiovascular: No symptom reported Gastrointestinal: Left flank pain Genitourinary: No symptom reported Musculoskeletal: No symptom reported Skin: No symptom reported Psychiatric: No symptom reported Endocrine: No symptom reported Hemotologic/Lymphatic: No symptom reported Vital Signs Vital Signs Date Time Temp Pulse Resp B/P (MAP) Pulse Ox O2 Delivery O2 Flow Rate FiO2 12/19/24 14:01 44 16 116/54 (74) 98 12/19/24 08:26 Nasal Cannula* 2 28 12/19/24 07:45 98.8 98.8 Physical Exam General Appearance: Cooperative. Well developed. Morbidly obese. In no acute distress Head Exam: Normal inspection Neck Exam: Normal inspection. Non-tender. Normal alignment Pulmonary/Respiratory: Chest non-tender. Clear bilateral breath sounds Cardiovascular/Chest: Regular rate and rhythm. S1, S2. Sinus rhythm. No murmurs. No JVD. Peripheral Pulses: 2+ Radial (R). 2+ Radial (L). 2+ Pedal (R). 2+ Pedal (L) Abdominal Exam: Normal bowel sounds. Soft. Nontender. No hepatospenomegaly. No masses Ankle Exam: Negative ankle edema Lower extremities: Negative lower extremity edema Neuro/Mental Status: A&O x4. Coherent Thoughts/Psych: Normal thought pattern. Appropriate mood and affect. Good judgement and insight Appearance: In no acute distress Skin Exam: Normal inspection. Normal color. Warm. Dry Labs/Diagnostic Data Labs Test 12/19/24 06:34 12/19/24 00:35 12/18/24 23:12 12/18/24 23:04 Range/Units White Blood Count 8.3 4.4-10.8 10^3/uL Red Blood Count 5.30 4.5-5.90 10^6/uL Hemoglobin 14.1 13.5-17.5 g/dL Hematocrit 42.7 41.0-53.0 % Mean Corpuscular Volume 80.5 80.0-100.0 fL Mean Corpuscular Hemoglobin 26.6 L 28.0-32.0 pg Mean Corpuscular Hemoglobin Concent 33.0 32.0-36.0 g/dL Red Cell Distribution Width 13.7 11.8-14.3 % Platelet Count 299 140-450 10^3/uL Mean Platelet Volume 7.2 6.9-10.8 fL Neutrophils (%) (Auto) 87.8 H 37.0-80.0 % Lymphocytes (%) (Auto) 7.3 L 10.0-50.0 % Monocytes (%) (Auto) 4.7 0.0-12.0 % Eosinophils (%) (Auto) 0.0 0.0-7.0 % Basophils (%) (Auto) 0.2 0.0-2.0 % Neutrophils # (Auto) 7.3 1.6-8.6 10 ^3/uL Lymphocytes # (Auto) 0.6 0.4-5.4 10 ^3/uL Monocytes # (Auto) 0.4 0-1.3 10 ^3/uL Eosinophils # (Auto) 0 0-0.8 10 ^3/uL Basophils # (Auto) 0 0-0.2 10 ^3/uL Nucleated Red Blood Cells 0.1 % Sodium Level 139 136-145 mmol/L Potassium Level 4.4 3.5-5.1 mmol/L Chloride Level 109 H 98-107 mmol/L Carbon Dioxide Level 17 L 20-31 mmol/L Anion Gap 13 5-15 Blood Urea Nitrogen 12 9-23 mg/dL Creatinine 1.45 H 0.700-1.30 mg/dL Glomerular Filtration Rate Calc 66 >90 mL/min BUN/Creatinine Ratio 8.3 L 10.0-20.0 Serum Glucose 126 H 74-106 mg/dL Calcium Level 9.7 8.7-10.4 mg/dL Total Bilirubin 0.7 0.2-1.0 mg/dL Aspartate Amino Transferase (AST) 35 13-40 U/L Alanine Aminotransferase (ALT) 53 H 7-40 U/L Alkaline Phosphatase 43 L 46-116 U/L Lactate Dehydrogenase 279 H 120-246 U/L Total Protein 7.0 5.7-8.2 g/dL Albumin 4.7 3.2-4.8 g/dL Lactic Acid Level 3.8 *H 0.4-2.0 mmol/L Urine Color Yellow Yellow Urine Clarity Clear Clear Urine pH 6.5 5.0-9.0 Urine Specific [place] 1.042 H 1.001-1.035 Urine Protein 1+ H Negative Urine Ketones 1+ H Negative Urine Blood 2+ H Negative /uL Urine Nitrite Negative Negative Urine Bilirubin Negative Negative Urine Urobilinogen 2 H Negative mg/dL Urine Leukocyte Esterase Negative Negative /uL Urine RBC 4 0 - 3 /hpf Urine Microscopic WBC 4 H 0-3 /HPF Urine Squamous Epithelial Cells Few <5 /hpf Urine Calcium Oxalate Crystals Few None Seen Urine Bacteria None seen None Seen /hpf Urine Mucus Few None Seen Urine Glucose Normal Normal mg/dL Urine Opiates Screen Neg NEGATIVE Urine Fentanyl Screen Neg NEGATIVE Urine Barbiturates Screen Neg NEGATIVE Urine Phencyclidine Screen Neg NEGATIVE Urine Amphetamines Screen Neg NEGATIVE Urine Benzodiazepines Screen Neg NEGATIVE Urine Cocaine Screen Neg NEGATIVE Urine Cannabinoids Screen Pos NEGATIVE Lipase 77 H 12-53 U/L Assessment Asymptomatic bradycardia Left nephrolithiasis Acute kidney injury Tobacco use Morbid obesity Plan/Recommendation (Dr. Schreiber) The patient presents with asymptomatic bradycardia and no evidence of atrioventricular blocks or sinus pauses. Recommend treatment of hypertension with amlodipine and to avoid AV brinda blocking agents. Replete electrolytes as necessary. Consider an outpatient event monitor if deemed necessary. There is no further cardiac workup indicated at this time. Kindly call if in need to re- consult. Thank you for allowing us to participate in this patient's care. This medical document was created using an electronic medical record system with voice recognition software and computerized dictation system. Although this document has been carefully reviewed, there might still be some phonetic and typographical errors. Occasional wrong-word or ``sound-alike substitutions may have occurred due to the inherent limitations of voice recognition software. These areas are purely typographical due to imperfections of the software programs and do not reflect any compromise in the patient's medical care. Please read the chart carefully and recognize, using context, where these substitutions have occurred. Plan discussed with: Patient, Spouse, Other NYHA Physical activity limitations: NA Date of Service: Dec 19, 2024 Billing Provider: TIFFANIE REBOLLEDO Cardiology Common Codes: 28403-[id number] INP/OBS CARE (High) TIFFANIE REBOLLEDO Dec 19, 2024 15:53
[2024-12-19 16:00] VITALS: BP 113/57; PULSE 51; RESP 25; O2SAT 94
--- NOTE | 2024-12-19 16:33 | ECG ---
[facility] Test Date: 2024-12-19 Test Time: 10:16:38 Pat Name: MARCO A HOWARD Department: ER Room: [address] [place] [address] Gender: M Plaster Lather: RHODA : 1995 Requested By: KARENA PARTIDA Order Number: [id number] Reading MD: Fernando Schreiber Measurements Intervals [place] Rate: 47 P: 35 ND: 136 QRS: 60 QRSD: 88 T: 41 QT: 462 QTc: 409 Interpretive Statements Sinus bradycardia Baseline wander in lead(s) V5 Electronically Signed On 12-20-2024 18:46:29 PST by Fernando Schreiber Please click the below link to view image of tracing.
--- NOTE | 2024-12-19 22:07 | DVHDS2 ---
Discharge Summary Date of Admission Dec 19, 2024 at 01:52 Date of Discharge: Dec 19, 2024 Admitting Diagnosis Left flank pain Labs/Diagnostic Data: Laboratory Results Test 12/19/24 06:34 12/19/24 00:35 12/18/24 23:12 12/18/24 23:04 White Blood Count 8.3 10^3/uL (4.4-10.8) Red Blood Count 5.30 10^6/uL (4.5-5.90) Hemoglobin 14.1 g/dL (13.5-17.5) Hematocrit 42.7 % (41.0-53.0) Mean Corpuscular Volume 80.5 fL (80.0-100.0) Mean Corpuscular Hemoglobin 26.6 pg (28.0-32.0) Mean Corpuscular Hemoglobin Concent 33.0 g/dL (32.0-36.0) Red Cell Distribution Width 13.7 % (11.8-14.3) Platelet Count 299 10^3/uL (140-450) Mean Platelet Volume 7.2 fL (6.9-10.8) Neutrophils (%) (Auto) 87.8 % (37.0-80.0) Lymphocytes (%) (Auto) 7.3 % (10.0-50.0) Monocytes (%) (Auto) 4.7 % (0.0-12.0) Eosinophils (%) (Auto) 0.0 % (0.0-7.0) Basophils (%) (Auto) 0.2 % (0.0-2.0) Neutrophils # (Auto) 7.3 10 ^3/uL (1.6-8.6) Lymphocytes # (Auto) 0.6 10 ^3/uL (0.4-5.4) Monocytes # (Auto) 0.4 10 ^3/uL (0-1.3) Eosinophils # (Auto) 0 10 ^3/uL (0-0.8) Basophils # (Auto) 0 10 ^3/uL (0-0.2) Nucleated Red Blood Cells 0.1 % Sodium Level 139 mmol/L (136-145) Potassium Level 4.4 mmol/L (3.5-5.1) Chloride Level 109 mmol/L (98-107) Carbon Dioxide Level 17 mmol/L (20-31) Anion Gap 13 (5-15) Blood Urea Nitrogen 12 mg/dL (9-23) Creatinine 1.45 mg/dL (0.700-1.30) Glomerular Filtration Rate Calc 66 mL/min (>90) BUN/Creatinine Ratio 8.3 (10.0-20.0) Serum Glucose 126 mg/dL (74-106) Calcium Level 9.7 mg/dL (8.7-10.4) Total Bilirubin 0.7 mg/dL (0.2-1.0) Aspartate Amino Transferase (AST) 35 U/L (13-40) Alanine Aminotransferase (ALT) 53 U/L (7-40) Alkaline Phosphatase 43 U/L (46-116) Lactate Dehydrogenase 279 U/L (120-246) Total Protein 7.0 g/dL (5.7-8.2) Albumin 4.7 g/dL (3.2-4.8) Lactic Acid Level 3.8 mmol/L (0.4-2.0) Urine Color Yellow (Yellow) Urine Clarity Clear (Clear) Urine pH 6.5 (5.0-9.0) Urine Specific Barry 1.042 (1.001-1.035) Urine Protein 1+ (Negative) Urine Ketones 1+ (Negative) Urine Blood 2+ /uL (Negative) Urine Nitrite Negative (Negative) Urine Bilirubin Negative (Negative) Urine Urobilinogen 2 mg/dL (Negative) Urine Leukocyte Esterase Negative /uL (Negative) Urine RBC 4 /hpf (0 - 3) Urine Microscopic WBC 4 /HPF (0-3) Urine Squamous Epithelial Cells Few /hpf (<5) Urine Calcium Oxalate Crystals Few (None Seen) Urine Bacteria None seen /hpf (None Seen) Urine Mucus Few (None Seen) Urine Glucose Normal mg/dL (Normal) Urine Opiates Screen Neg (NEGATIVE) Urine Fentanyl Screen Neg (NEGATIVE) Urine Barbiturates Screen Neg (NEGATIVE) Urine Phencyclidine Screen Neg (NEGATIVE) Urine Amphetamines Screen Neg (NEGATIVE) Urine Benzodiazepines Screen Neg (NEGATIVE) Urine Cocaine Screen Neg (NEGATIVE) Urine Cannabinoids Screen Pos (NEGATIVE) Lipase 77 U/L (12-53) Other Laboratory Tests 12/19/24 06:34 Brief Hx & Hospital Course: A 29-year-old male patient with multiple comorbidities; who presented to emergency department with left flank pain. #Left flank pain due to obstructing 4 mm calculus in the distal left ureter resulting in mild left hydroureteronephrosis; continue IV antibiotics; continue pain management as indicated; evaluated by Urology; left AMA #Asymptomatic bradycardia; evaluated by Cardiology; left AMA #Tiny nonobstructing right upper pole renal calculus; evaluated by Urology; left AMA #Mild hepatomegaly; needs to follow up as outpatient; left AMA #Marijuana use cessation; counseled on marijuana use cessation for 17 minutes; left AMA #Essential hypertension; continue home antihypertensive medications; left AMA #Morbid obesity; counseled the patient on the importance of adopting healthy lifestyle with diet and exercise in order to lose weight; left AMA #OG; most likely vasomotor nephropathy; on IV fluids; left AMA Late Entry. This medical document was created using an electronic medical record system with computerized dictation system. Although this document has been carefully reviewed, there might still be some phonetic and typographical errors. These areas are purely typographical due to imperfections of the software programs, and do not reflect any compromise in the patient's medical care. Consults/Reason for consult Urology for renal stones; cardiology for bradycardia Condition at Discharge: Undetermined (Left AMA) Final Diagnosis/Problems List #Left flank pain due to obstructing 4 mm calculus in the distal left ureter resulting in mild left hydroureteronephrosis #Asymptomatic bradycardia #Tiny nonobstructing right upper pole renal calculus #Mild hepatomegaly #Marijuana use cessation #Essential hypertension #Morbid obesity #OG; most likely vasomotor nephropathy Discharge Disposition: AMA Discharge Instruct/Medications Diet: See Comment (Left AMA) Activity: See Comment (Left AMA) Follow Up/Referral: Left AMA Medications: Left AMA Discharge Statement: "Patient was advised to return to the ER or call 911 if any headaches, dizziness, shortness of breath, chest pain, abdominal pain, bleeding, fevers, or worsening of medical condition. Patient was counseled about treatment plan, medications, possible side effects, patientverbalized understanding. All questions were answered to the best of my ability. This discharge took greater then 30 minutes in planning, reviewing documentation, counseling the patient, and discussing with other team members." ASSESSMENT ASSESSMENT Assessment Date of Service: Dec 19, 2024 Billing Provider: LORENZO FALLON MD Common Visit Codes: 97090-CDQ/OBS DISCH DAY >30min LORENZO FALLON MD Dec 19, 2024 22:07
== END 2024-12-19 18:20 | disposition left against medical advice (07) | DRG 465 ==
LOC: ER 22:52 → OVERFLOW 12-19 01:52
PROVIDERS: ADMIT Nurse Practitioner Family; ATTEND Nurse Practitioner Family
DX: N13.2 Hydronephrosis with renal and ureteral calculous obstruction (principal); N17.0 Acute kidney failure with tubular necrosis; E66.01 Morbid (severe) obesity due to excess calories; E87.6 Hypokalemia; Z53.29 Procedure and treatment not carried out because of patient's decision for other reasons; I10 Essential (primary) hypertension; F17.210 Nicotine dependence, cigarettes, uncomplicated; G43.909 Migraine, unspecified, not intractable, without status migrainosus; F12.90 Cannabis use, unspecified, uncomplicated; Z82.3 Family history of stroke; Z82.49 Family history of ischemic heart disease and other diseases of the circulatory system; Z83.3 Family history of diabetes mellitus; Z68.39 Body mass index [BMI] 39.0-39.9, adult; Z79.899 Other long term (current) drug therapy
CPT/HCPCS: 36415; 74176; 80053; 80307; 81001; 83605; 83615; 83690; 85025; 93005; 96361; 96365; 96375; 99291; G0378; J1885; J2405